=== PATIENT | female | born 1955 | race Caucasian/White ===

== ENCOUNTER → 2023-05-10 06:19 | Outpatient (REF) | payer BC, SELFPAY ==
[2023-05-10 07:18] LABS: % Basophils 0.3 % (0-2); % Eosinophils 6.1 % (0-6); % Immature Granulocytes 0.3 % (0-0.5); % Lymphocytes 24.4 % (20.5-51.1); % Neutrophils 60.9 % (42.2-75.2); Absolute Eosinophils 0.4 10^3/uL (0-0.7); Absolute Lymphocytes 1.4 10^3/uL (1.2-3.4); Absolute Monocytes 0.5 10^3/uL (0.1-0.6); Absolute Neutrophils 3.5 10^3/uL (1.4-6.5); Hematocrit 41.2 % (37.0-47.0); Hemoglobin 13.7 g/dL (12.0-16.0); Mean Corp Hgb Conc. 33.3 g/dL (33.0-37.0); Mean Corpuscular Hgb 29.9 pg (27.0-31.0); Mean Platelet Volume 9.8 fL (7.4-10.4); Nucleated Red Blood Cells % 0 %; Platelet Count 263 10^3/uL (130-400); Red Blood Cell Count 4.58 10^6/uL (4.20-5.40); Red Cell Dist. Width 12.3 % (11.5-14.5); White Blood Cell Count 5.7 10^3/uL (4.8-10.8)
[2023-05-10 07:35] LABS: ALT (SGPT) 22 U/L (0-35); AST (SGOT) 25 U/L (14-36); Albumin 4.1 g/dl (3.5-5.0); Alkaline Phosphatase 105 U/L (38-126); Blood Urea Nitrogen 20 mg/dl (7-17); Calcium 10.1 mg/dl (8.4-10.2); Carbon Dioxide 26 mmol/L (22-30); Chloride 102 mmol/L (98-107); Glucose 94 mg/dl (70-99); Potassium 4.2 mmol/L (3.5-5.1); Sodium 138 mmol/L (135-145); Total Bilirubin 0.8 mg/dl (0.2-1.3); Total Protein 6.8 g/dl (6.3-8.2); eGFR > 60.00
[2023-05-10 07:42] LABS: Amylase 53 U/L (30-110); Lipase 88 U/L (23-300)
== END ==
LOC: REG 06:19
PROVIDERS: ATTENDING PHYSICIAN Family Medicine
DX: R10.30 Lower abdominal pain, unspecified (principal)
CPT/HCPCS: 36415; 80053; 82150; 83690; 85025

== ENCOUNTER → 2023-07-12 06:27 | Outpatient (REF) | payer BC, SELFPAY | LOC: RAD 06:27 | PROVIDERS: ATTENDING PHYSICIAN Family Medicine | DX: R10.30 Lower abdominal pain, unspecified (principal) | CPT/HCPCS: 74177; Q9967 ==

== ENCOUNTER → 2023-07-14 14:28 | Outpatient (REF) | payer BC, SELFPAY | LOC: RAD 14:28 | PROVIDERS: ATTENDING PHYSICIAN Internal Medicine Rheumatology; FAMILY PHYSICIAN Family Medicine | DX: M89.49 Other hypertrophic osteoarthropathy, multiple sites (principal) | CPT/HCPCS: 73502 ==

== ENCOUNTER → 2023-08-05 06:23 | Outpatient (REF) | payer BC, SELFPAY | LOC: RAD 06:23 | PROVIDERS: ATTENDING PHYSICIAN Internal Medicine Rheumatology; FAMILY PHYSICIAN Family Medicine | DX: M81.0 Age-related osteoporosis without current pathological fracture (principal) | CPT/HCPCS: 77080 ==

== ENCOUNTER → 2023-10-19 14:21 | Outpatient (REF) | payer BC, SELFPAY | LOC: WDC 14:21 | PROVIDERS: ATTENDING PHYSICIAN Family Medicine | DX: Z12.31 Encounter for screening mammogram for malignant neoplasm of breast (principal) | CPT/HCPCS: 77063; 77067 ==

== ENCOUNTER → 2023-12-22 07:14 | Outpatient (REF) | payer BC, SELFPAY | LOC: EMG 07:14 | PROVIDERS: ATTENDING PHYSICIAN Family Medicine | DX: R29.898 Other symptoms and signs involving the musculoskeletal system (principal); M54.16 Radiculopathy, lumbar region | CPT/HCPCS: 95886; 95911 ==

== ENCOUNTER → 2023-12-22 10:14 | Outpatient (REF) | payer BC, SELFPAY ==
[2023-12-22 12:10] LABS: % Basophils 0.3 % (0-2); % Eosinophils 1.3 % (0-6); % Immature Granulocytes 0.4 % (0-0.5); % Monocytes 6.3 % (1.7-9.3); % Neutrophils 72.7 % (42.2-75.2); Absolute Eosinophils 0.1 10^3/uL (0-0.7); Absolute Lymphocytes 1.4 10^3/uL (1.2-3.4); Absolute Monocytes 0.5 10^3/uL (0.1-0.6); Absolute Neutrophils 5.4 10^3/uL (1.4-6.5); Hematocrit 44.5 % (37.0-47.0); Hemoglobin 14.8 g/dL (12.0-16.0); Mean Corp Hgb Conc. 33.3 g/dL (33.0-37.0); Mean Corpuscular Hgb 30.2 pg (27.0-31.0); Mean Corpuscular Volume 90.8 fL (81.0-99.0); Mean Platelet Volume 9.7 fL (7.4-10.4); Nucleated Red Blood Cells % 0 %; Platelet Count 300 10^3/uL (130-400); Red Cell Dist. Width 12.6 % (11.5-14.5); White Blood Cell Count 7.4 10^3/uL (4.8-10.8)
[2023-12-22 12:53] LABS: Vitamin D, 25-OH*** 24.5 ng/mL (30-80)
[2023-12-22 12:55] LABS: ALT (SGPT) 21 U/L (0-35); AST (SGOT) 28 U/L (14-36); Albumin 4.7 g/dl (3.5-5.0); Alkaline Phosphatase 144 U/L (38-126); Blood Urea Nitrogen 22 mg/dl (7-17); Calcium 10.4 mg/dl (8.4-10.2); Carbon Dioxide 27 mmol/L (22-30); Chloride 100 mmol/L (98-107); Creatine Phosphokinase 73 U/L (30-135); Glucose 92 mg/dl (70-99); HDL Cholesterol 65 mg/dl; LDL Cholesterol, Calculated 156 mg/dl; Magnesium 2.6 mg/dl (1.6-2.3); Potassium 4.7 mmol/L (3.5-5.1); Sodium 140 mmol/L (135-145); Total Cholesterol 253 mg/dl (50-199); Total Protein 7.4 g/dl (6.3-8.2); Triglyceride 164 mg/dl (10-149); Very Low Density Lipoprotein 32 mg/dl (0-30); eGFR > 60.00
[2023-12-25 09:09] LABS: Intact PTH 83.3 pg/ml (13.6-85.8)
== END ==
LOC: REG 10:14
PROVIDERS: ATTENDING PHYSICIAN Family Medicine
DX: Z00.00 Encounter for general adult medical examination without abnormal findings (principal); E78.2 Mixed hyperlipidemia; I70.0 Atherosclerosis of aorta; F41.9 Anxiety disorder, unspecified; I10 Essential (primary) hypertension; I42.9 Cardiomyopathy, unspecified; M81.0 Age-related osteoporosis without current pathological fracture; E55.9 Vitamin D deficiency, unspecified; E03.9 Hypothyroidism, unspecified; I50.20 Unspecified systolic (congestive) heart failure; E66.9 Obesity, unspecified; K21.9 Gastro-esophageal reflux disease without esophagitis; K76.9 Liver disease, unspecified; E21.0 Primary hyperparathyroidism; J45.909 Unspecified asthma, uncomplicated
CPT/HCPCS: 36415; 80053; 80061; 82306; 82550; 83735; 83970; 85025

== ENCOUNTER → 2024-01-24 14:49 | Outpatient (REF) | payer BC, SELFPAY | LOC: REG 14:49 | PROVIDERS: ATTENDING PHYSICIAN Internal Medicine Cardiovascular Disease | DX: G62.9 Polyneuropathy, unspecified (principal) | CPT/HCPCS: 36415; 82784; 83521; 84155; 84156; 84165; 86334; 86335 ==

== ENCOUNTER → 2024-01-27 13:48 | Outpatient (REF) | payer BC, SELFPAY | LOC: RCS 13:48 | PROVIDERS: ATTENDING PHYSICIAN Internal Medicine Cardiovascular Disease; FAMILY PHYSICIAN Family Medicine | DX: G62.9 Polyneuropathy, unspecified (principal) | CPT/HCPCS: 93306; 93356 ==

== ENCOUNTER → 2024-02-20 09:17 | Outpatient (REF) | payer BC, SELFPAY | LOC: RAD 09:17 | PROVIDERS: ATTENDING PHYSICIAN Internal Medicine Cardiovascular Disease; FAMILY PHYSICIAN Family Medicine | DX: I10 Essential (primary) hypertension (principal) | CPT/HCPCS: 78803; A9538 ==

== ENCOUNTER 2024-08-17 06:28 | Day surgery (SDC) | payer BC, SELFPAY | END 2024-08-17 10:38 | disposition home or self-care (01) | LOC: GI 06:28 | PROVIDERS: ATTENDING PHYSICIAN Internal Medicine | DX: Z12.11 Encounter for screening for malignant neoplasm of colon (principal); D12.0 Benign neoplasm of cecum; D12.2 Benign neoplasm of ascending colon; K63.5 Polyp of colon; K57.30 Diverticulosis of large intestine without perforation or abscess without bleeding; K57.32 Diverticulitis of large intestine without perforation or abscess without bleeding; K62.89 Other specified diseases of anus and rectum; R10.32 Left lower quadrant pain; R93.3 Abnormal findings on diagnostic imaging of other parts of digestive tract; Z86.0101 Personal history of adenomatous and serrated colon polyps | CPT/HCPCS: 45385; 45380; 88305 ==

== ENCOUNTER → 2024-12-11 06:17 | Outpatient (REF) | payer BC, SELFPAY ==
[2024-12-11 07:59] LABS: Hematocrit 37.0 % (37.0-47.0); Hemoglobin 12.1 g/dL (12.0-16.0); Mean Corp Hgb Conc. 32.7 g/dL (33.0-37.0); Mean Corpuscular Volume 88.1 fL (81.0-99.0); Nucleated Red Blood Cells % 0 %; Platelet Count 204 10^3/uL (130-400); Red Cell Dist. Width 13.2 % (11.5-14.5)
[2024-12-11 08:55] LABS: Vitamin D, 25-OH*** 31.7 ng/mL (30-80)
[2024-12-11 09:09] LABS: ALT (SGPT) 26 U/L (0-35); AST (SGOT) 29 U/L (14-36); Albumin 4.3 g/dl (3.5-5.0); Alkaline Phosphatase 96 U/L (38-126); Blood Urea Nitrogen 16 mg/dl (7-17); Calcium 9.9 mg/dl (8.4-10.2); Carbon Dioxide 26 mmol/L (22-30); Chloride 109 mmol/L (98-107); Glucose 96 mg/dl (70-99); Magnesium 2.4 mg/dl (1.6-2.3); Potassium 4.5 mmol/L (3.5-5.1); Sodium 140 mmol/L (135-145); Total Protein 6.8 g/dl (6.3-8.2); eGFR > 60.00
== END ==
LOC: REG 06:17
PROVIDERS: ATTENDING PHYSICIAN Family Medicine
DX: E78.2 Mixed hyperlipidemia (principal); I10 Essential (primary) hypertension; E55.9 Vitamin D deficiency, unspecified; E21.0 Primary hyperparathyroidism; E03.9 Hypothyroidism, unspecified; I50.20 Unspecified systolic (congestive) heart failure; Z00.00 Encounter for general adult medical examination without abnormal findings
CPT/HCPCS: 36415; 80053; 82306; 83735; 83970; 84443; 85025

== ENCOUNTER → 2024-12-15 06:39 | Outpatient (REF) | payer BC, SELFPAY | LOC: PAVMRI 06:39 | PROVIDERS: ATTENDING PHYSICIAN Orthopaedic Surgery; FAMILY PHYSICIAN Family Medicine | DX: M16.11 Unilateral primary osteoarthritis, right hip (principal); M25.551 Pain in right hip | CPT/HCPCS: 73721 ==

== ENCOUNTER → 2025-01-07 14:37 | Outpatient (REF) | payer BC, SELFPAY | LOC: WDC 14:37 | PROVIDERS: ATTENDING PHYSICIAN Family Medicine | DX: Z12.31 Encounter for screening mammogram for malignant neoplasm of breast (principal) | CPT/HCPCS: 77063; 77067 ==

== ENCOUNTER 2025-02-06 07:56 | Inpatient (IN) | payer BC, MEDICARE, SELFPAY ==
--- NOTE | 2025-01-18 15:30 | CM ---
Addendum entered by Sharon Kendall RN 01/22/25 14:49:
Demographics: lives alone, but will be staying with daughter in [place], [place]
Living situation: lives alone, in a multi story home.
Support Person Post Operatively: Daughter
History of
VN: No
SNF: no
Outpatient: close to her daughter.
Has patient purchased required equipment: yes
PCP: confirmed
Pharmacy: [facility]
Post Operative Discharge Plan: Patient stated that she will be staying with her daughter post operatively. CM will have difficulty setting up same day visit with VN. CM updated orthopedic PA with discharge planning challenges.
Original Note:
CM reviewed medical records. CM left message for patient for orthopedic [place].
[2025-01-23 11:02] LABS: Hematocrit 36.8 % (37.0-47.0); Hemoglobin 12.4 g/dL (12.0-16.0); Mean Corp Hgb Conc. 33.7 g/dL (33.0-37.0); Mean Corpuscular Volume 88.7 fL (81.0-99.0); Platelet Count 241 10^3/uL (130-400); Red Cell Dist. Width 12.4 % (11.5-14.5)
[2025-01-23 11:19] LABS: Glycohemoglobin (HgbA1c) 5.5 % (4.0-5.6)
[2025-01-23 11:24] LABS: ALT (SGPT) 29 U/L (0-35); AST (SGOT) 30 U/L (14-36); Albumin 4.4 g/dl (3.5-5.0); Alkaline Phosphatase 102 U/L (38-126); Blood Urea Nitrogen 23 mg/dl (7-17); Calcium 10.0 mg/dl (8.4-10.2); Carbon Dioxide 30 mmol/L (22-30); Chloride 104 mmol/L (98-107); Glucose 89 mg/dl (70-99); Potassium 4.6 mmol/L (3.5-5.1); Sodium 140 mmol/L (135-145); Total Protein 7.1 g/dl (6.3-8.2); eGFR > 60.00
[2025-02-06] VITALS (12 sets, daily range): BP systolic 100–119; BP diastolic 58–74; PULSE 84; O2SAT 97
--- NOTE | 2025-02-06 07:46 | W.PN.UPDATE ---
Update Note
Progress Note Update
R hip OA s/p R KENROY w/ Dr Tran 02/06/25
- EARLY DISCHARGE
DVT prophylaxis - ASA, b/l venous foot pumps
HTN - + parameters - monitor BP
Chronic systolic HFpEF and NICM - reduce hourly IVF rate to prevent fluid overload
- Resume Lasix w/ SBP parameters to minimize post-surgical hypotension
- Monitor daily weight, I&Os
Asthma per records and COPD - monitor O2
- IS
- Duoneb as needed
- Decadron to aid in lung perfusion
GERD - add Pepcid HS
Recurrent diverticulitis, last 08/2024
History of colitis secondary to the above
- Minimize NSAID use as able
Chronic constipation - per pt preference, start Colace w/ her home bowel regimen of Benefiber and Miralax
- Did advise to add Senna should no BM occur w/n 48-72 hours post-surgery
- Adequate hydration, early mobility as tolerated, and the minimization of opioids were also discussed jose raul-op
Peripheral polyneuropathy - continue Duloxetine
- Consider additional Gabapentin
HLD
CAD
LBBB
Colon polyps with history of tubovillous adenoma
Benign hepatic cysts
Lumbar DDD with stenosis
Hypothyroidism
Osteopenia
Bilateral cataracts
Chronically elevated CPK
Obesity, BMI 30.0
Remote history of tobacco abuse
[2025-02-06] MEDS: TYLENOL 650 MG PO ×3 (08:47→21:16)
[2025-02-06] MEDS: CELEBREX 200 MG PO (08:47)
[2025-02-06] MEDS: NORMOSOL-R/PLASMALYTE-A 1000 IV ×2 (08:53→13:26)
[2025-02-06] MEDS: ROXICODONE 5 MG PO (12:32)
--- NOTE | 2025-02-06 13:15 | PTCARENOTE ---
Patient admitted from pacu post right total hip arthroplasty.She reports her pain at a 8 out of 10.The patient is alert and oriented.Neurovascular assessment within normal limits and ongoing.The right hip dressing is intact without drainage.Vital
signs are stable.The patient is in her bed with the call diallo in reach.
[2025-02-06] MEDS: SYNTHROID 75 MCG PO (14:27)
[2025-02-06] MEDS: MIRALAX PO (14:27)
[2025-02-06] MEDS: ROXICODONE 10 MG PO ×2 (15:48→21:25)
[2025-02-06] MEDS: ASPIRIN 325 MG PO (17:39)
[2025-02-06] MEDS: ANCEF 5 IV (17:39)
[2025-02-06] MEDS: BACTROBAN 2% OINTMENT 1 APPLIC NASAL (20:00)
[2025-02-06] MEDS: COLACE 100 MG PO (21:16)
[2025-02-06] MEDS: COREG 12.5 MG PO (21:16)
[2025-02-06] MEDS: CRESTOR 5 MG PO (21:17)
[2025-02-06] MEDS: DECADRON 4 MG PO (21:17)
[2025-02-06] MEDS: PEPCID 20 MG PO (21:17)
[2025-02-07] MEDS: TYLENOL 650 MG PO ×2 (00:10→08:17)
[2025-02-07] MEDS: ANCEF 5 IV (02:15)
[2025-02-07] MEDS: TYLENOL PO (04:00)
[2025-02-07 04:22] VITALS: BP 112/59; BMI 30.7
[2025-02-07] MEDS: ROXICODONE 5 MG PO ×2 (05:59→10:05)
[2025-02-07] MEDS: SYNTHROID 75 MCG PO (06:03)
[2025-02-07] MEDS: COREG PO (08:16)
[2025-02-07] MEDS: MIRALAX 17 GRAMS PO (08:17)
[2025-02-07] MEDS: COLACE 100 MG PO (08:17)
[2025-02-07] MEDS: ASPIRIN 325 MG PO (08:17)
[2025-02-07] MEDS: DECADRON 4 MG PO (08:17)
[2025-02-07] MEDS: BACTROBAN 2% OINTMENT 1 APPLIC NASAL (08:17)
[2025-02-07 08:20] VITALS: BP 101/58
--- NOTE | 2025-02-07 08:56 | W.PN.ORTHO ---
Today's Communication / Plan
-
Await PT and OT recs.
Monitor BP prior to d/c.
D/c later this AM if clinically stable.
Assessment
.
Distal Motor Intact: Yes
Dressing:
Clean, dry and intact.
Assessment:
R hip OA s/p R KENROY forrest/ Dr Tran 02/06/25
- EARLY DISCHARGE
DVT prophylaxis - ASA, b/l venous foot pumps
HTN - + parameters - BPs soft this AM but pt reportedly asymptomatic
- Per pt, baseline BPs tend to be low
- Will give 1x dose of Midodrine to ensure BP stability
- Encouraged oral hydration
Chronic systolic HFpEF and NICM - reduced hourly IVF rate to prevent fluid overload
- Resumed Lasix w/ SBP parameters to minimize post-surgical hypotension
- Daily weight, I&Os overall stable
Asthma per records and COPD - O2 stable on RA by POD 1
- IS
- Duoneb as needed
- Decadron to aid in lung perfusion
GERD - added Pepcid HS
Recurrent diverticulitis, last 08/2024
History of colitis secondary to the above
- Minimize NSAID use as able
Chronic constipation - per pt preference, start Colace w/ her home bowel regimen of Benefiber and Miralax
- Did advise to add Senna should no BM occur w/n 48-72 hours post-surgery
- Adequate hydration, early mobility as tolerated, and the minimization of opioids were also discussed jose raul-op
Peripheral polyneuropathy - continue Duloxetine
- Consider additional Gabapentin
HLD
CAD
LBBB
Colon polyps with history of tubovillous adenoma
Benign hepatic cysts
Lumbar DDD with stenosis
Hypothyroidism
Osteopenia
Bilateral cataracts
Chronically elevated CPK
Obesity, BMI 30.0
Remote history of tobacco abuse
Plan
.
Surgery / Date: [facility]/ Dr Tran 02/06/25
DVT Prophylaxis: Aspirin
Activity:
Out of bed.
PT/OT
Discharge Plan: Home w/ Outpatient PT
Subjective
.
.:
Patient resting comfortably in her bed.
R hip pain overall well controlled w/ current pain meds.
BP soft this AM but asymptomatic. Will monitor.
Eager for potential d/c today.
Vital Signs and Labs
.
Vital Signs and Labs:
Lab Results
01/23/25 10:35
01/23/25 10:35
Temp Pulse Resp BP Pulse Ox
98.1 F 78 16 97/57 96
02/07/25 08:20 02/07/25 08:34 02/07/25 08:20 02/07/25 08:34 02/07/25 08:20
Non-invasive Hgb result: 9.7
Physical Exam
-
HEENT: No pallor, cyanosis, or jaundice. Throat clear.
NECK: Supple. No JVD.
RESPIRATORY: Lungs clear to auscultation.
CVS: S1, S2 normal. RRR.�
ABDOMEN: Soft, non-tender. No distension.
EXTREMITIES: Mild brusing by surgical dressing - expected. NTTP. Strength equal, no calf pain with palpation/dorsiflexion. Calves soft.
VICE PRESIDENT OF PROCUREMENT: AOx3. No focal deficits. station cashier grossly intact
--- NOTE | 2025-02-07 09:05 | CM ---
Cm met with patient and daughter in room. Confirmed appointment with [facility].
PLAN: Home with outpatient PT.
--- NOTE | 2025-02-07 09:07 | W.DS.TRANS ---
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
-
Discharge Instructions:
Sleep Apnea Risk Low
Discharge Diagnosis/Procedures R hip OA s/p R KENROY w/ Dr Tran 02/06/2025
Diet Other diet
Additional Diets Diabetic carb controlled x1 week for wound
healing/infection prevention.
Adequate hydration, minimize opioids, and wear
TEDs stockings to prevent low blood pressure/
dizziness.
Activity As tolerated,With Walker
Driving Restrictions Not until seen by your Dr
Bathing Restrictions OK to Shower
Other Services PT
Wound Care Dressing to be removed 1 week post-surgery.
Specialty Instructions Weigh Daily
Instructions:
Stand-Alone Forms: Total Hip/Knee Replacement D/C
Changes to Home Medications: Yes
Discharge Medications:
DC Medications w/original date entered in [facility]
carvedilol 12.5 mg tablet 12.5 mg PO BID Heart Failure 09/14/21
levothyroxine 75 mcg tablet 75 mcg PO DAILY Thyroid 09/14/21
guar gum 1 tbsp PO Q48H Constipation 01/21/25
rosuvastatin 5 mg tablet 5 mg PO HS High Cholesterol 01/21/25
dexamethasone 4 mg tablet 4 mg PO BID Anti-inflammatory #7 tabs 01/23/25
famotidine 20 mg tablet (Pepcid) 20 mg PO HS #30 tabs 01/23/25
mupirocin 2 % topical ointment 1 applic intranasal BID #1 tube 01/23/25
ondansetron HCl 4 mg tablet 4 mg PO Q6H PRN nausea and vomiting #30 tabs 01/23/25
oxycodone 5 mg tablet 5 - 10 mg (1 - 2 x 5 mg) PO Q6H PRN moderate-severe pain #30 tabs 01/23/25
acetaminophen 325 mg tablet 650 mg (2 x 325 mg) PO Q4HWA #60 tabs 02/07/25
aspirin 325 mg tablet 325 mg PO DAILY #30 tabs 02/07/25
docusate sodium 100 mg capsule 100 mg PO BID #30 caps 02/07/25
duloxetine 60 mg capsule,delayed release 60 mg PO DAILY PRN neuropathic pain #0 caps 02/07/25
enalapril maleate 5 mg tablet 5 mg PO DAILY Blood Pressure #1 tab 02/07/25
furosemide 20 mg tablet 40 mg (2 x 20 mg) PO DAILY #1 tab 02/07/25
polyethylene glycol 3350 17 gram oral powder packet 17 g PO DAILY #1 ea 02/07/25
sennosides 8.6 mg tablet (Mona-audra) 17.2 mg (2 x 8.6 mg) PO BID PRN constipation #1 tab 02/07/25
Home Medication Changes
dexamethasone 4 mg tablet 4 mg PO BID Anti-inflammatory #7 tabs 01/23/25
famotidine 20 mg tablet (Pepcid) 20 mg PO HS #30 tabs 01/23/25
ondansetron HCl 4 mg tablet 4 mg PO Q6H PRN nausea and vomiting #30 tabs 01/23/25
oxycodone 5 mg tablet 5 - 10 mg (1 - 2 x 5 mg) PO Q6H PRN moderate-severe pain #30 tabs 01/23/25
acetaminophen 325 mg tablet 650 mg (2 x 325 mg) PO Q4HWA #60 tabs 02/07/25
aspirin 325 mg tablet 325 mg PO DAILY #30 tabs 02/07/25
docusate sodium 100 mg capsule 100 mg PO BID #30 caps 02/07/25
duloxetine 60 mg capsule,delayed release 60 mg PO DAILY PRN neuropathic pain #0 caps 02/07/25
polyethylene glycol 3350 17 gram oral powder packet 17 g PO DAILY #1 ea 02/07/25
sennosides 8.6 mg tablet (Mona-audra) 17.2 mg (2 x 8.6 mg) PO BID PRN constipation #1 tab 02/07/25
Pending Results: No
[2025-02-07 09:47] VITALS: BP 113/58; BP 97/57; PULSE 78
[2025-02-07 10:05] VITALS: BP 104/58; PULSE 63; O2SAT 96
== END 2025-02-07 10:34 | disposition home or self-care (01) | DRG 470 ==
LOC: 2 SOUTH 07:56
PROVIDERS: ADMITTING PHYSICIAN Orthopaedic Surgery; FAMILY PHYSICIAN Family Medicine
PROC: 0SR904A Replacement of Right Hip Joint with Ceramic on Polyethylene Synthetic Substitute, Uncemented, Open Approach (ICD-10-PCS; 2025-02-06)
DX: M16.11 Unilateral primary osteoarthritis, right hip (principal); I50.22 Chronic systolic (congestive) heart failure; I42.8 Other cardiomyopathies; I11.0 Hypertensive heart disease with heart failure; K59.09 Other constipation; E66.9 Obesity, unspecified; Z68.30 Body mass index [BMI] 30.0-30.9, adult; Z87.891 Personal history of nicotine dependence; J44.89 Other specified chronic obstructive pulmonary disease
CPT/HCPCS: 36415; 73502; 80053; 83036; 85027; 87070; 93005; 97110; 97116; 97163; 97167; 97530; 97535; C1713; C1776

== ENCOUNTER → 2025-03-19 07:57 | Outpatient (REF) | payer BC, MEDICARE, SELFPAY ==
[2025-03-19 15:05] LABS: ALT (SGPT) 24 U/L (0-35); AST (SGOT) 28 U/L (14-36); Albumin 4.5 g/dl (3.5-5.0); Alkaline Phosphatase 163 U/L (38-126); Blood Urea Nitrogen 19 mg/dl (7-17); Calcium 10.5 mg/dl (8.4-10.2); Carbon Dioxide 29 mmol/L (22-30); Chloride 102 mmol/L (98-107); Glucose 108 mg/dl (70-99); HDL Cholesterol 55 mg/dl; LDL Cholesterol, Calculated 64 mg/dl; Potassium 4.2 mmol/L (3.5-5.1); Sodium 137 mmol/L (135-145); Total Protein 7.5 g/dl (6.3-8.2); Very Low Density Lipoprotein 19 mg/dl (0-30); eGFR > 60.00
== END ==
LOC: REG 07:57
PROVIDERS: ATTENDING PHYSICIAN Family Medicine
DX: E78.2 Mixed hyperlipidemia (principal)
CPT/HCPCS: 36415; 80053; 80061